=== PATIENT | male | born 1980 | race Caucasian/White ===

== ENCOUNTER 2018-12-31 01:22 | Emergency (ER) | payer OTHER ==
[2018-12-31] MEDS ORDERED: DEXAMETHASONE SOD PHOSPHATE 10 MG/ML 1 ML VIAL IM STA (02:04)
--- NOTE | 2018-12-31 03:35 | ED ---
Allergic Reaction HPI - General Chief complaint: Allergic Reaction Stated complaint: Bee Sting Time Seen by Provider: 12/31/18 01:40 Source: patient Mode of arrival: ambulatory Limitations: no limitations - History of Present Illness Initial Comments: Patient is a 38-year-old male presenting to emergency Department with a chief complaint of facial swelling. Patient reports he was attempting to remove a bee's nest 4 hours ago prior to ED arrival when coupled the bee stung him in his hand and near the eye. Patient reports increased swelling in his face and on his hand. Patient denies previous anaphylactic reactions. Patient denies any dyspnea, dysphagia or shortness of breath. Patient reports the areas of edema are itchy. Patient denies any headaches, blurry vision fever chills per - Related Data Previous Rx's Medication Instructions Recorded Famotidine [Pepcid] 20 mg PO BID #5 tablet 12/31/18 predniSONE 50 mg PO DAILY #5 tab 12/31/18 Allergies Allergy/AdvReac Type Severity Reaction Status Date / Time bee pollen Allergy Swelling Verified 12/31/18 01:28 Review of Systems ROS Statement: Those systems with pertinent positive or pertinent negative responses have been documented in the HPI. ROS Other: All systems not noted in ROS Statement are negative. Past Medical History Past Medical History: No Reported History Past Surgical History: No Surgical Hx Reported Past Alcohol Use History: None Reported Past Drug Use History: None Reported General Exam Limitations: no limitations General appearance: alert, in no apparent distress Head exam: Present: atraumatic, normocephalic. Absent: normal inspection (Angioedema) Eye exam: Present: normal appearance, PERRL, EOMI, periorbital swelling Pupils: Present: normal accommodation ENT exam: Present: normal exam, normal oropharynx, mucous membranes moist, TM's normal bilaterally, normal external ear exam Neck exam: Present: normal inspection, tenderness Respiratory exam: Present: normal lung sounds bilaterally. Absent: respiratory distress, wheezes Cardiovascular Exam: Present: regular rate, normal rhythm, normal heart sounds Extremities exam: Present: normal inspection, full ROM Back exam: Present: normal inspection, full ROM Neurological exam: Present: alert, oriented X3 Psychiatric exam: Present: normal affect, normal mood Skin exam: Present: warm, intact, normal color Course Vital Signs 12/31/18 12/31/18 01:23 02:27 Temperature 98.0 F 98.1 F Pulse Rate 104 H 78 Respiratory 18 18 Rate Blood Pressure 115/75 116/72 O2 Sat by Pulse 99 98 Oximetry Medical Decision Making - Medical Decision Making Patient is a 38-year-old male presenting to the emergency department with a chief complaint of facial swelling. Patient was stung by a bee on his hand and face. Patient denies dyspnea or dysphasia or any shortness of breath. Physical examination is indicative of right hand edema and angioedema with no signs of blurry vision. No wheezing noted. Patient was given ice compress and given 10 mg of Decadron. Patient will be discharged with 5 days of prednisone. Patient advised to take prescribed medication as directed. Patient advised to return to emergency department if symptoms worsen. Case discussed with physician. Disposition Clinical Impression: Allergic reaction, Allergic reaction to insect sting Disposition: HOME SELF-CARE Condition: Stable Instructions (If sedation given, give patient instructions): Insect Bite or Sting (ED) Additional Instructions: Please take prescribed medication as directed. Please return to emergency department if symptoms worsen. Prescriptions: predniSONE 50 mg PO DAILY #5 tab Is patient prescribed a controlled substance at d/c from ED?: No Referrals: None,Stated [Primary Care Provider] - 1-2 days Time of Disposition: 03:34
[2018-12-31] MEDS ORDERED: predniSONE 50 MG TAB PO STA (04:07)
[2018-12-31] MEDS ORDERED: FAMOTIDINE 20 MG TAB PO STA (04:07)
[2018-12-31 04:54] VITALS: BP 128/87; PULSE 80; RESP 19; TEMP 97.7
== END 2018-12-31 04:54 | disposition home or self-care (01) ==
LOC: EC 01:22
DX: T63.441A Toxic effect of venom of bees, accidental (unintentional), initial encounter (principal); T78.3XXA Angioneurotic edema, initial encounter
CPT/HCPCS: 99283; 96372; J1100; J7512

== ENCOUNTER 2024-02-11 21:54 | Emergency (ER) | payer SELFPAY ==
[2024-02-11 22:12] VITALS: RESP 18; TEMP 97.6
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
[2024-02-11] MEDS: DIPH,PERTUS(ACELL)TETVAC-LF 0.5 ML VIAL IM ONE (22:31)
[2024-02-11 22:44] VITALS: BP 143/88; PULSE 79
== END 2024-02-11 22:41 | disposition home or self-care (01) ==
LOC: EC 21:54
DX: Z91.030 Bee allergy status; Z23 Encounter for immunization
CPT/HCPCS: 90471; 90715; 99283